=== PATIENT | female | born 1965 | race Caucasian/White ===

== ENCOUNTER 2021-06-04 16:08 | Emergency (ER) | payer MEDICAID, SELFPAY ==
--- NOTE | 2021-06-04 16:26 | XRR_ITS ---
PROCEDURE INFORMATION: Exam: XR Chest Exam date and time: 06/04/2021 4:26 PM Age: 56 years old Clinical indication: Shortness of breath; Patient HX: History--sob, pneumonia, low o2 TECHNIQUE: Imaging protocol: XR of the chest. Views: 1 view. COMPARISON: No relevant prior studies available. FINDINGS: Lungs: There is ill-defined reticular opacity throughout the mid to lower left lung and to a lesser extent in the lower right lung. Pleural spaces: There is no pleural effusion or pneumothorax. Heart/Mediastinum: Cardiomediastinal contours are unremarkable. Bones/joints: Bones are unremarkable. XR/XR chest 1V portable [id number] IMPRESSION: Probable bilateral pneumonia, left greater than right.
--- NOTE | 2021-06-04 16:27 | ECG_ITS ---
[facility] Test Date: 2021-06-04 Pat Name: Maite Owens Department: Room: Gender: Female Audience Development Manager: : 1965 Requested By: Poly Brennan Order Number: [id number] Sandro MD: Herb Tierney M.D. Measurements Intervals [place] Rate: 73 P: 80 MI: 153 QRS: 79 QRSD: 95 T: 81 QT: 402 QTc: 446 Interpretive Statements SINUS RHYTHM WITH OCCASIONAL ECTOPIC PREMATURE COMPLEXES INCOMPLETE RIGHT BUNDLE BRANCH BLOCK [90+ ms QRS DURATION, TERMINAL R IN V1/V2, 40+ ms S IN I/aVL/V4/V5/V6] No previous ECG available for comparison Electronically Signed On 06-05-2021 0:48:01 CDT by Herb Tierney M.D. [id number]
[2021-06-04 16:47] VITALS: BP 166/98; PULSE 74; RESP 19; TEMP 37.1; O2SAT 91; BMI 25.7
[2021-06-04 18:19] LABS: Basophils # 0.1 10^3/uL (0.0-0.1); Basophils % 0.5 %; Eosinophils # 0.3 10^3/uL (0.0-0.8); Eosinophils % 1.6 %; Hematocrit 48.9 % (37.0-47.0); Hemoglobin 15.4 g/dL (11.5-15.3); Lymphocytes # 2.5 10^3/uL (0.8-4.8); Mean Corpuscular HGB Conc 31.5 g/dL (30.0-36.0); Mean Corpuscular Hemoglobin 31.3 pg (28.0-34.0); Mean Corpuscular Volume 99.4 fL (81-99); Mean Platelet Volume 10.3 fL (7.4-10.4); Monocytes % 5.5 %; Neutrophils # 14.91 10^3/uL (1.8-7.7); Neutrophils % 78.6 %; Nucleated Red Blood Cells % 0 %; Platelet Count 299 10^3/cmm (130-400); Red Blood Count 4.92 10^6/uL (4.1-5.3); Red Cell Distribution Width 13.2 % (12.1-15.1)
[2021-06-04 18:32] LABS: Alanine Aminotransferase 11 U/L (0-33); Albumin Level 3.8 g/dL (3.5-5.2); Alkaline Phosphatase 82 IU/L (35-105); Anion Gap 11.7 (5-19); Aspartate Amino Transferase 15 U/L (0-32); Blood Urea Nitrogen 8 mg/dL (6-20); Calcium 8.7 mg/dL (8.5-10.5); Carbon Dioxide 36 mmol/L (22-29); Chloride 98 mmol/L (98-107); Globulin 3.6 g/dL (1.3-4.6); Glomerular Filtration Rate 127.6 mL/min (90-130); Glucose 129 mg/dL (65-115); Osmolality Calculated 294 mOsm/kg (285-295); Potassium 3.7 mmol/L (3.5-5.1); Sodium 142 mmol/L (136-145); Total Bilirubin 0.6 mg/dL (0.15-1.2); Total Protein 7.4 g/dL (6.6-8.7)
[2021-06-04 18:37] LABS: Lactic Sepsis W/Reflex 0.7 mmol/L (0.5-2.2)
[2021-06-04 18:38] LABS: Troponin(5th) Baseline 6 ng/L (0-10)
== END 2021-06-04 20:12 ==
PROVIDERS: Physician Assistant; Emergency Provider Family Medicine
DX: J18.9 Pneumonia, unspecified organism (principal); R06.02 Shortness of breath; Z53.21 Procedure and treatment not carried out due to patient leaving prior to being seen by health care provider
CPT/HCPCS: 71045; 80053; 83605; 84484; 85025; 87040; 93005

== ENCOUNTER 2021-10-08 11:01 | Outpatient (CLI) | payer MEDICAID, SELFPAY ==
--- NOTE | 2021-10-08 11:08 | CT_ITS ---
WS: [id number] LDCT LUNG CANCER SCREENING TECHNIQUE: Noncontrast CT of the chest with coronal and sagittal reformatted images. CLINICAL INFORMATION: Lung cancer screening COMPARISON: None. DLP: 56.96 mGy.cm DIvol: 1.[address] scans at [facility] use at least one of these dose optimization techniques: automat ed exposure control; mA and/or kV adjustment per patient size (includes targeted exams where dose is matched to clinical indication); or iterative reconstruction. FINDINGS: Noncalcified nodule right upper lobe subpleural location 6.4 mm. Subsegmental atelectasis right lower lobe. Noncalcified nodule right upper lobe measuring 3 mm. Fibrosis in the lung apices. Tiny subpleu ral nodule right lower lobe measuring 3 mm. Fibrosis in the lingula. No mediastinal or hilar lymphadenopathy. Normal thoracic spine. CT/CT lung screening [id number] IMPRESSION: LUNG-RADS: 3-Probably Benign FOLLOW UP: 6 Month LDCT
== END 2021-10-08 11:02 | disposition home or self-care (01) ==
LOC: CT 11:01
PROVIDERS: PCP Family Medicine; Visit Provider Internal Medicine Critical Care Medicine
DX: Z12.2 Encounter for screening for malignant neoplasm of respiratory organs (principal); F17.200 Nicotine dependence, unspecified, uncomplicated
CPT/HCPCS: 71271

== ENCOUNTER → 2022-03-17 10:12 | Outpatient (BNVA) | payer MEDICAID, SELFPAY | PROVIDERS: PCP Family Medicine; Visit Provider Internal Medicine Critical Care Medicine | DX: J44.9 Chronic obstructive pulmonary disease, unspecified (principal); J96.11 Chronic respiratory failure with hypoxia; J96.12 Chronic respiratory failure with hypercapnia; F17.210 Nicotine dependence, cigarettes, uncomplicated; R91.1 Solitary pulmonary nodule; I10 Essential (primary) hypertension | CPT/HCPCS: 99214 ==

== ENCOUNTER 2022-04-29 09:22 | Outpatient (CLI) | payer MEDICAID, SELFPAY ==
--- NOTE | 2022-04-29 10:39 | PFTS_ITS ---
Date of Study:04/29/22 Date of Dictation: MECHANICS: Forced vital capacity (FVC) is normal. Forced expiratory volume in one second (FEV1) is reduced. FEV1/FVC is reduced. FLOW VOLUME LOOP: Reduced flow at all lung volumes with significant scooping. LUNG VOLUMES: Total lung capacity (TLC) is increased. Residual volume (RV) is increased. DIFFUSING CAPACITY FOR CARBON MONOXIDE: Mildly reduced. INTERPRETATION: The postbronchodilator spirometry is consistent with moderate airflow obstruction. There is no significant postbronchodilator response. Lung volumes are consistent with hyperinflation and air trapping. Gas exchange (DLCO) is mildly reduced. MTDD
== END 2022-04-29 09:23 | disposition home or self-care (01) ==
LOC: RT 09:25
PROVIDERS: PCP Family Medicine; Visit Provider Internal Medicine Critical Care Medicine
DX: J44.9 Chronic obstructive pulmonary disease, unspecified (principal)
CPT/HCPCS: 94060; 94618; 94726; 94729; J7611

== ENCOUNTER 2022-05-19 13:23 | Outpatient (CLI) | payer MEDICAID, SELFPAY ==
--- NOTE | 2022-05-19 13:15 | CT_ITS ---
WS: [id number] LDCT LUNG CANCER SCREENING HISTORY: Lung cancer screening TECHNIQUE: Axial imaging performed from the apices to 1 cm below the costophrenic angles. Coronal and sagittal reformats are submitted with axial MIP series. All CT scans at [facility] use at least one of these dose optimization techniques: automated exposure control; mA and/or kV adjustment per patient size (includes targeted exams where dose is matched to clinical indication); or iterativ e reconstruction. DLP: 78.16 mGy.cm DIvol: Mean CTDIvol: 1.60 (mGy) COMPARISON: 10/08/2021 Diagnostic quality: Satisfactory Lung Nodules: New solid opacification in the RIGHT middle lobe abuts the RIGHT heart border measures 3.5 x 1.7 cm. There is adjacent mild groundglass attenuation and mild bronchial thickening. New bilat eral bronchial wall thickening in the RIGHT middle lobes, lingula and at the lung bases. There are a few branching opacifications in a tree-in-bud distribution which are also new. Lungs: Chronic emphysema. Heart: Normal size heart. Other findings: Mild increase in size and number of the mediastinal and hilar lymph nodes since the p rior examination. Lymph nodes measure up to [address]/CT lung screening [id number] IMPRESSION: LUNG-RADS: 4A-Probably Suspicious FOLLOW UP: Chest CT with or without contrast OTHER FINDINGS (S MODIFIER): None. 1. New solid opacification in the RIGHT middle lobe measures 3.5 x 1.7 cm. Ray plasm versus pneumonia/atelectasis. 2. Additional bilateral tree-in-bud airspace disease and groundglass attenuati on, bronchial wall thickening and mild prominence of the mediastinal and hilar lymph nodes. These findings are all new since 10/08/2021. Differential includes endobronchial infection and aspiration pneumonia. 3. Recommend short-term CT follow-up in 4-6 weeks with IV contrast following t reatment for pneumonia.
== END 2022-05-19 13:24 | disposition home or self-care (01) ==
PROVIDERS: PCP Family Medicine; Visit Provider Internal Medicine Critical Care Medicine
DX: Z12.2 Encounter for screening for malignant neoplasm of respiratory organs (principal); F17.210 Nicotine dependence, cigarettes, uncomplicated
CPT/HCPCS: 71271

== ENCOUNTER → 2022-08-07 16:14 | Outpatient (BNVA) | payer MEDICAID, SELFPAY | PROVIDERS: PCP Family Medicine; Visit Provider Internal Medicine Critical Care Medicine | DX: J18.9 Pneumonia, unspecified organism (principal); J44.9 Chronic obstructive pulmonary disease, unspecified; G47.34 Idiopathic sleep related nonobstructive alveolar hypoventilation; F17.200 Nicotine dependence, unspecified, uncomplicated; R91.1 Solitary pulmonary nodule; R42 Dizziness and giddiness | CPT/HCPCS: 71046 ==

== ENCOUNTER 2023-06-04 09:06 | Outpatient (CLI) | payer MEDICAID, SELFPAY ==
--- NOTE | 2023-06-04 09:15 | CT_ITS ---
WS: [id number] LDCT LUNG CANCER SCREENING HISTORY: Cancer screen TECHNIQUE: Axial imaging performed from the apices to 1 cm below the costophrenic angles. Coronal and sagittal reformats are submitted with axial MIP series. All CT scans at [facility] use at least one of these dose optimization techniques: automated exposure control; mA and/or kV adjustment per patient size (includes targeted exams where dose is matched to clinical indication); or iterativ e reconstruction. DLP: 54.67 mGy.cm DIvol: Mean CTDIvol: 0.80 (mGy) COMPARISON: 05/19/2022 Diagnostic quality: Satisfactory Lungs: Significant improvement in opacification since the prior examination. The areas of consolidati on and tree-in-bud airspace disease have resolved. Single focal 5 mm nodule persists in the RIGHT mid dle lobe. This was also present on 10/08/2021. Mild peripheral interstitial thickening probably relat ed to the patient's chronic lung disease. No additional masses or nodules. No endobronchial lesion. Heart: Normal size heart with no pericardial effusion.. Other findings: No adenopathy. Mild atherosclerosis aorta. No adrenal mass. CT/CT lung screening [id number] IMPRESSION: LUNG-RADS: 2-Benign Appearance or Behavior FOLLOW UP: 12 Month: Continue annual screening with LDCT OTHER FINDINGS (S MODIFIER): None.
== END 2023-06-04 09:07 | disposition home or self-care (01) ==
PROVIDERS: PCP Family Medicine; Visit Provider Internal Medicine Pulmonary Disease
DX: Z12.2 Encounter for screening for malignant neoplasm of respiratory organs (principal); F17.210 Nicotine dependence, cigarettes, uncomplicated
CPT/HCPCS: 71271

== ENCOUNTER 2023-07-08 09:35 | Outpatient (CLI) | payer MEDICAID, SELFPAY ==
--- NOTE | 2023-07-08 09:43 | MM_ITS ---
WS: [id number] SCREENING DIGITAL TOMOSYNTHESIS MAMMOGRAM WITH CAD HISTORY: SCREENING COMPARISON: None available. Bilateral CC and MLO with tomosynthesis views submitted. Synthetic mammography reviewed. Computer aid ed detection analyzed. Breast composition: There are scattered areas of fibroglandular density. No suspicious masses, microc alcifications or architectural distortion. IMPRESSION: MM/[place] [id number] BI-RADS: 1-Negative FOLLOW UP: 1 Year Follow-up
== END 2023-07-08 09:36 | disposition home or self-care (01) ==
LOC: RAD 09:37 → MOBLMAM 09:42
PROVIDERS: PCP Family Medicine; Visit Provider Nurse Practitioner Family
DX: Z12.31 Encounter for screening mammogram for malignant neoplasm of breast (principal)
CPT/HCPCS: 77063; 77067

== ENCOUNTER 2024-07-14 10:00 | Outpatient (CLI) | payer MEDICAID, SELFPAY ==
--- NOTE | 2024-07-14 10:00 | MM_ITS ---
WS: [id number] SCREENING DIGITAL TOMOSYNTHESIS MAMMOGRAM WITH CAD HISTORY: SCREENING COMPARISON: 07/08/2023 Bilateral CC and MLO with tomosynthesis views submitted. Synthetic mammography reviewed. Computer aid ed detection analyzed. Breast composition: There are scattered areas of fibroglandular density. No suspicious masses, microc alcifications or architectural distortion. MM/[place] [id number] IMPRESSION: BI-RADS: 2 - Benign. FOLLOW UP: 1 Year Follow-up
== END 2024-07-14 10:05 | disposition home or self-care (01) ==
PROVIDERS: PCP Family Medicine; Visit Provider Family Medicine
DX: Z12.31 Encounter for screening mammogram for malignant neoplasm of breast (principal); R92.323 Mammographic fibroglandular density, bilateral breasts
CPT/HCPCS: 77063; 77067

== ENCOUNTER 2025-02-24 15:14 | Outpatient (CLI) | payer MEDICAID, SELFPAY ==
--- NOTE | 2025-02-24 15:18 | CTR_ITS ---
PROCEDURE INFORMATION: Exam: CT Chest Without Contrast; Diagnostic Exam date and time: 02/24/2025 3:25 PM Age: 59 years old Clinical indication: Condition or disease; Lung condition and disease; Copd; Complications not specified; Shortness of breath; HX of cervical cancer; Additional info: Copd, hypoxia TECHNIQUE: Imaging protocol: Diagnostic computed tomography of the chest without contrast. Radiation optimization: All CT scans at this facility use at least one of these dose optimization techniques: automated exposure control; mA and/or kV adjustment per patient size (includes targeted exams where dose is matched to clinical indication); or iterative reconstruction. COMPARISON: 1. CT lung screening [id number] 06/04/2023 9:[address] lung screening [id number] 05/19/2022 1:31 PM RADIATION DOSE METRICS: Total DLP (mGy-cm): 299.01 FINDINGS: Lungs: Stable 4 mm right upper lobe nodule (series 4, image 21). Stable small focus of tree-in-bud opacities in the inferior right upper lobe. Stable 7 mm right middle lobe nodule, image 45 (previously described as 5 mm). Pleural spaces: Unremarkable. No pneumothorax. No pleural effusion. Heart: Unremarkable. No cardiomegaly. No pericardial effusion. Coronary arteries: No coronary artery calcifications. Lymph nodes: Unremarkable. No enlarged lymph nodes. Vasculature: Aberrant right subclavian artery. Bones/joints: Mild kyphosis and degenerative endplate changes in the thoracic spine. No fracture. Soft tissues: Unremarkable. CT/CT chest wo con [id number] IMPRESSION: 1. No acute pulmonary findings. 2. Stable small focus of chronic tree-in-bud opacities in the inferior right upper lobe, consistent with scarring from prior infectious bronchiolitis. 3. Stable 4 mm and 7 mm right pulmonary nodules. Greater than two year stability favors a benign etiology.
== END 2025-02-24 15:15 | disposition home or self-care (01) ==
PROVIDERS: PCP Family Medicine; Visit Provider Student in an Organized Health Care Education/Training Program
DX: J44.9 Chronic obstructive pulmonary disease, unspecified (principal); J96.11 Chronic respiratory failure with hypoxia; R91.8 Other nonspecific abnormal finding of lung field; R93.89 Abnormal findings on diagnostic imaging of other specified body structures; M40.294 Other kyphosis, thoracic region; M51.34 Other intervertebral disc degeneration, thoracic region
CPT/HCPCS: 71250

== ENCOUNTER 2025-08-17 11:19 | Outpatient (CLI) | payer MEDICAID, SELFPAY ==
--- NOTE | 2025-08-17 11:20 | MM_ITS ---
WS: [id number] BILATERAL SCREENING DIGITAL TOMOSYNTHESIS MAMMOGRAM WITH CAD HISTORY: SCREENING COMPARISON: 07/14/2024, 07/08/2023 Bilateral CC and MLO views with tomosynthesis and synthetic mammography submitted. Computer aided detection analyzed. Breast composition: There are scattered areas of fibroglandular density. No suspicious masses, microcalcifications or architectural distortion. MM/MM scr BI tomosynthesis [id number] IMPRESSION: BI-RADS: 1 - Negative. FOLLOW UP: 1 Year Follow-up
== END 2025-08-17 11:20 | disposition home or self-care (01) ==
LOC: MOBLMAM 11:22
PROVIDERS: PCP Family Medicine; Visit Provider Family Medicine
DX: Z12.31 Encounter for screening mammogram for malignant neoplasm of breast (principal); R92.323 Mammographic fibroglandular density, bilateral breasts
CPT/HCPCS: 77063; 77067